=== PATIENT | male | born 2000 | race Caucasian/White ===

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

== ENCOUNTER 2020-02-03 18:14 | Emergency (ER) | payer MEDICAID ==
[2020-02-03 18:18] VITALS: BP 128/80
[2020-02-03] MEDS ORDERED: cefTRIAXone SOD 1,000 MG VL IM ONE (20:30)
== END 2020-02-03 21:24 | disposition home or self-care (01) ==
LOC: EDBD 18:14 → ER 18:14
DX: S90.425A Blister (nonthermal), left lesser toe(s), initial encounter (principal); L03.032 Cellulitis of left toe; X58.XXXA Exposure to other specified factors, initial encounter; Y93.89 Activity, other specified; Y92.89 Other specified places as the place of occurrence of the external cause; Y99.8 Other external cause status
CPT/HCPCS: 73630; 96372; 99283; J0696

== ENCOUNTER 2023-11-04 22:04 | Emergency (ER) | payer BC, MEDICAID ==
[~2023-11-04] VITALS: Ht 177.8 cm; Wt 77.3 kg
[2023-11-04 22:35] LABS: Basophils # (auto) 0.1 10 ^3/uL (0-0.2); Basophils % (auto) 0.6 % (0.0-2.0); Eosinophils # (auto) 0.1 10 ^3/uL (0-0.8); Hematocrit 46.5 % (41.0-53.0); Hemoglobin 15.6 g/dL (13.5-17.5); Lymphocytes # (auto) 2.7 10 ^3/uL (0.4-5.4); Mean Corpuscular Hgb Conc. 33.4 g/dL (32.0-36.0); Mean Corpuscular Volume 86.8 fL (80.0-100.0); Monocytes # (auto) 0.9 10 ^3/uL (0-1.3); Monocytes % (auto) 10.3 % (0.0-12.0); Neutrophils # (auto) 4.8 10 ^3/uL (1.6-8.6); Neutrophils % (auto) 56.1 % (37.0-80.0); Nucleated Red Blood Cells % 0.1 %; Red Blood Cells 5.36 10^6/uL (4.5-5.90); Red Cell Distribution Width 13.2 % (11.8-14.3); White Blood Cell 8.5 10^3/uL (4.4-10.8)
[2023-11-04 22:50] LABS: Alanine Aminotransferase 33 U/L (7-40); Albumin 4.6 g/dL (3.2-4.8); Alkaline Phosphatase 94 U/L (46-116); Anion Gap 7 (5-15); Aspartate Aminotransferase 25 U/L (13-40); BUN/Creatinine Ratio 10.5 (10.0-20.0); Blood Urea Nitrogen 11 mg/dL (9-23); Calcium 9.6 mg/dL (8.7-10.4); Carbon Dioxide 25 mmol/L (20-30); Chloride 108 mmol/L (98-107); Glucose 102 mg/dL (74-106); Magnesium 2.2 mg/dL (1.6-2.6); Potassium 3.7 mmol/L (3.5-5.1); Sodium 140 mmol/L (136-145)
[2023-11-04 22:51] LABS: Total Protein 7.4 g/dL (5.7-8.2)
[2023-11-04 22:57] LABS: INR 1.08 (0.9-1.15); Partial Thromboplastin Time 26.2 SEC (24.5-34.5); Prothrombin Time 11.4 sec (9.3-11.8)
[2023-11-05] MEDS: ASPirin 325 MG TAB PO ONE (01:28)
[2023-11-05 01:30] VITALS: BP 138/90; PULSE 93; RESP 16; TEMP 97.3; O2SAT 98
== END 2023-11-05 02:55 | disposition home or self-care (01) ==
LOC: ER 22:04
DX: R07.89 Other chest pain (principal); J45.909 Unspecified asthma, uncomplicated; F17.210 Nicotine dependence, cigarettes, uncomplicated; Z59.00 Homelessness unspecified
CPT/HCPCS: 36415; 71045; 80053; 83735; 83880; 84484; 85025; 85610; 85730; 93005

== ENCOUNTER 2023-11-19 21:38 | Emergency (ER) | payer BC | END 2023-11-20 02:17 | disposition left against medical advice (07) | LOC: ER 21:38 | DX: F41.9 Anxiety disorder, unspecified (principal); Z53.21 Procedure and treatment not carried out due to patient leaving prior to being seen by health care provider ==